=== PATIENT | male | born 1960 | race Caucasian/White ===

== ENCOUNTER 2017-04-05 11:20 | Emergency (ER) | payer SELFPAY | END 2017-04-05 13:51 | disposition home or self-care (01) | LOC: ER 11:20 | PROC: 0X940ZZ Drainage of Right Axilla, Open Approach (ICD-10-PCS; principal; 2017-04-05) | DX: L02.411 Cutaneous abscess of right axilla (principal); Z86.19 Personal history of other infectious and parasitic diseases | CPT/HCPCS: 99283 ==